=== PATIENT | male | born 1985 | race Caucasian/White ===

== ENCOUNTER 2021-05-20 11:25 | Emergency (ER) | payer OTHER, SELFPAY ==
[2021-05-20 11:37] VITALS: BP 140/76; PULSE 64; RESP 18; TEMP 36.6; O2SAT 100
--- NOTE | 2021-05-20 11:53 | ED.EAR ---
HPI - Ear Problem General Chief complaint: Ear Stated complaint: ear pain Time Seen by Provider: 05/20/21 11:53 Source: patient Mode of arrival: ambulatory Limitations: no limitations History of Present Illness HPI Narrative: Maurisio Sanchez is a 35-year-old male with no prior medical history who comes to [facility] with complaints of right ear pain. He states has been hurting about 4 to 5 days and is getting worse especially when he tries eat anything and scratchy requires a lot of chewing. He was on a river trip last weekend and got in the water and was also playing around in the water quite a bit. He has tried Tylenol and ibuprofen but the ear pain is getting worse Related Data Home Medications Medication Instructions Recorded Confirmed ibuprofen 05/20/21 Allergies Allergy/AdvReac Type Severity Reaction Status Date / Time Penicillins Allergy Hives Verified 05/20/21 11:45 Review of Systems Review of Systems: CONSTITUTIONAL: Denies fever, chills, sweats. EYES: Denies visual changes, redness, discharge. ENT: Denies rhinorrhea, congestion, sore throat, right otalgia. Right TMJ pain CARDIOVASCULAR: Denies chest pain, palpitations, edema. RESPIRATORY: Denies dyspnea, wheezing, cough GASTROINTESTINAL: Denies abdominal pain, nausea, vomiting, diarrhea. GENITOURINARY: Denies dysuria, hematuria, abnormal discharge SKIN: Denies rash or itching. NEUROLOGIC: Denies numbness, or focal weakness. PSYCHIATRIC: Denies anxiety or depression. [facility] Past Medical History Medical History No acute medical problems Family History Family History Other Diabetes mellitus Heart disease Hypertension Social History Social History (Updated 05/20/21 @ 11:56 by Noemi Lizarraga CNP) Smoking status: Never smoker Alcohol intake: current Comments At time of signature, I agree with nursing past medical, surgical, social and family history. There is no relevant family history pertinent to the presenting complaint. Exam Narrative: GENERAL: This is a well-nourished, well-developed patient, in mild distress. HEAD: normocephalic, atraumatic. EYES: Sclera clear/white. Vision is grossly intact. EARS: External ears normal, auditory canal mild erythema on left and right canal edema with erythema with drainage, TMs normal without perforation. Hearing grossly intact. NOSE: External nose normal without nasal discharge, nares without redness, no rhinorrhea. THROAT: Mucous membranes moist, posterior pharynx erythema with pus pocket central posterior pharynx NECK: Neck supple, non-tender CARDIOVASCULAR: Regular rate and rhythm without murmurs, gallops, or rubs. RESPIRATORY: Clear to auscultation. Breath sounds equal bilaterally. No wheezes, rales, or rhonchi. GASTROINTESTINAL: Abdomen soft, non-tender, SKIN: warm, intact with no suspicious lesions or rash, good texture and turgor. NEURO: awake, alert, and oriented to person, place and time. There were no obvious focal neurologic abnormalities. Steady gait EXTREMITIES: Normal range of motion. BACK: Nontender without deformity Course Course Emergency Course: Patient is here with complaints of right ear pain that started after a full trip last weekend and is gotten worse in the last 4 to 5 days Eardrops and oral antibiotics given due to both ear infection and apparent pharyngitis with pus Vital Signs Vital signs: Vital Signs Temperature 97.9 F 05/20/21 11:37 Pulse Rate 64 05/20/21 11:37 Respiratory Rate 18 05/20/21 11:37 Blood Pressure 140/76 05/20/21 11:37 Pulse Oximetry 100 05/20/21 11:37 Temperature 97.9 F 05/20/21 11:37 Pulse Rate 64 05/20/21 11:37 Respiratory Rate 18 05/20/21 11:37 Blood Pressure 140/76 05/20/21 11:37 Pulse Oximetry 100 05/20/21 11:37 Medical Decision Making Differential Diagnosis Differential Brittney
== END 2021-05-20 12:14 | disposition home or self-care (01) ==
PROVIDERS: Emergency Provider Nurse Practitioner
DX: H60.91 Unspecified otitis externa, right ear (principal); J03.90 Acute tonsillitis, unspecified
CPT/HCPCS: 99203; G0463

== ENCOUNTER 2021-07-03 14:08 | Emergency (ER) | payer OTHER, SELFPAY ==
[2021-07-03 14:16] VITALS: BP 139/79; PULSE 80; RESP 18; TEMP 36.6; O2SAT 100
--- NOTE | 2021-07-03 14:21 | ED.GENADULT ---
HPI - General Adult General Chief complaint: Wound/Laceration Stated complaint: Cut Lt leg Source: patient Mode of arrival: ambulatory Limitations: no limitations History of Present Illness HPI narrative: 35 y/o male. PMHx none reported. Presents [facility] today with acute complaints of LLE laceration. Pt reports to have been working on a deck with boards immediately [employer]. He did not see a nail in one of the boards as he was lifting it, causing the nail to catch and lacerate his lower leg. Bleeding is currently controlled. Nail remains intact, without additional concern for residual FB per report. Last TDAP UTD, 2 years ago per client. He is non-diabetic. No sensory changes or deficits reported. Related Data Allergies Allergy/AdvReac Type Severity Reaction Status Date / Time Penicillins Allergy Hives Verified 07/03/21 14:35 Review of Systems Review of Systems: CONSTITUTIONAL: Denies fever, chills, sweats. EYES: Denies visual changes, redness, discharge. ENT: Denies rhinorrhea, congestion, sore throat, otalgia. CARDIOVASCULAR: Denies chest pain, palpitations, edema. RESPIRATORY: Denies dyspnea, wheezing, cough GASTROINTESTINAL: Denies abdominal pain, nausea, vomiting, diarrhea. GENITOURINARY: Denies dysuria, hematuria, abnormal discharge SKIN: Denies rash or itching. LLE Laceration. MUSCULOSKELETAL: Denies acute back pain, joint pain, or myalgia. NEUROLOGIC: Denies numbness, or focal weakness. PSYCHIATRIC: Denies anxiety or depression. All systems reviewed & are unremarkable except as noted in HPI and below PMFSH Past Medical History Medical History No acute medical problems Family History Family History Other Diabetes mellitus Heart disease Hypertension Social History Social History Smoking status: Never smoker Alcohol intake: current Exam Narrative: GENERAL: This is a well-nourished, well-developed adult, in no apparent distress. HEAD: normocephalic, atraumatic. EYES: PERRL. Sclera clear/white. EARS: External ears normal, auditory canals clear and without drainage, TMs normal. NOSE: External nose normal. Positive Rhinorrhea, no obstruction, nares patent. THROAT: Mucous membranes moist, posterior pharynx clear. No exudates. NECK: Neck supple, non-tender without lymphadenopathy, masses or thyromegaly. CARDIOVASCULAR: Regular rate and rhythm without murmurs, gallops, or rubs. Pulses strong, intact LLE. RESPIRATORY: Clear to auscultation. Breath sounds equal bilaterally. No wheezes, rales, or rhonchi. GASTROINTESTINAL: Abdomen soft, non-tender, nondistended. Bowel sounds are active. No guarding. SKIN: warm, with 4 cm linear laceration located to lower left inner leg, above ankle. Bleeding controlled. No obvious FB. No signs of deep tissue or tendon disruption. NEURO: Alert, active, and age appropriate. Good sensation and discrimination LLE. No focal neurologic deficits. EXTREMITIES: Full flexion and extension of LLE, no bony tenderness or disruption. Negative. Course Vital Signs Vital signs: Vital Signs Temperature 36.6 C 07/03/21 14:16 Pulse Rate 80 07/03/21 14:16 Respiratory Rate 18 07/03/21 14:16 Blood Pressure 139/79 07/03/21 14:16 Pulse Oximetry 100 07/03/21 14:16 Temperature 36.6 C 07/03/21 14:16 Pulse Rate 80 07/03/21 14:16 Respiratory Rate 18 07/03/21 14:16 Blood Pressure 139/79 07/03/21 14:16 Pulse Oximetry 100 07/03/21 14:16 Procedures Laceration Laceration 1: Date: 07/03/21 Time: 14:28 Site: lower extremity Side (If applicable): left Size (cm): 4 Description: linear Depth: simple, single layer Local Anesthetic: lidocaine 1% Amount of anesthesia used (mL): 1 Pre-repair: wound explored, i
== END 2021-07-03 15:07 | disposition home or self-care (01) ==
PROVIDERS: Emergency Provider Nurse Practitioner Adult Health
DX: S81.812A Laceration without foreign body, left lower leg, initial encounter (principal); W45.0XXA Nail entering through skin, initial encounter
CPT/HCPCS: 12002; 99212; G0463

== ENCOUNTER 2022-03-21 10:16 | Emergency (ER) | payer OTHER, SELFPAY ==
--- NOTE | 2022-03-21 10:25 | ED.NAVMDI ---
HPI - Nausea/Vomiting/Diarrhea General Stated complaint: vomiting,headache Time Seen by Provider: 03/21/22 10:25 Source: patient Mode of arrival: ambulatory Limitations: no limitations History of Present Illness HPI Narrative: Mr. Sanchez is a 36-year-old male patient presenting to the clinic today with complaints of headache and vomiting since Saturday. He reports he has a history of migraine headaches although he has not had any headaches x1 year. He denies ever having a CAT scan done before. He reports that this is the worst headache he has ever had and he rates his pain a 10 out of 10. Reports that his pain is sharp on the left side of his head just behind his eye and radiating to the parietal lobe. He is also has nausea and vomiting. He reports that he feels as though he may be dehydrated. Is also reporting some dizziness. His blood pressure is 147/88 in the clinic today. His is here with him today. MD elicited complaint: nausea, vomiting and other (Headache) Related Data Home Medications Medication Instructions Recorded Confirmed escitalopram oxalate 10 mg tablet 10 mg PO DAILY 03/21/22 03/21/22 (Lexapro) Allergies Allergy/AdvReac Type Severity Reaction Status Date / Time Penicillins Allergy Hives Verified 07/03/21 14:35 Review of Systems Review of Systems: Pertinent positives per HPI. Patient denies any fever, chills, rash, visual changes, cough, runny nose, sore throat, shortness of breath, chest pain, palpitations, diarrhea, constipation, abdominal pain, or any urinary issues. PMFSH Past Medical History Medical History No acute medical problems Family History Family History Other Diabetes mellitus Heart disease Hypertension Social History Social History Smoking status: Never smoker Alcohol intake: current Comments At the time of my signature, I reviewed and agree with the nursing past medical, surgical, social, and family history. There is no relevant family history pertinent to the patient complaint. Exam Narrative: General: Well-developed, well nourished, in no apparent distress Head: Normocephalic, atraumatic Eyes: Pupils equally round and reactive to light bilaterally, EOM intact, sclera and conjunctive clear, no discharge, lids normal Ears: TMs intact and clear, ear canals clear, no drainage, grossly hearing normal. Nose: Nares patent, no discharge, no inflammation, no sinus tenderness. Mouth: Oropharynx without lesions or masses, good dentition, MMM. Neck: Supple, trachea midline, no enlargement of anterior or posterior cervical nodes, no thyroid masses or goiter palpable. Cardio: Regular rate and rhythm, s1 and s2 normal, no murmur appreciated. Resp: Clear to auscultation bilaterally anteriorly and posteriorly, no rhonchi, rales, wheezing or rubs Course Course Emergency Course: Portions of this record may have been created with voice recognition software. Level of Care: Express Care Visit Vital Signs Vital signs: Vital signs reviewed Transfer Transfered to: Other ([facility] in [place], [place]) Transportation: Other (Private car) Transfer rationale: Migraine headache/worst headache ever/needs CAT scan of brain Accepting physician: Dr. Jimenez Transfer comments: Patient's to drive him to hospital. MDM - Nausea/Vomiting/Diarrhea MDM Narrative Medical decision making narrative: At the time of visit patient is resting comfortably on the exam table. He reports that his migraine headache is a 10 out of 10 pain. He reports that is just behind the left eye and radiates into the parietal lobe. He has never had a CAT scan completed before. He also reports that he may be dehydrated. I recommend that he is transferred to the ER for a CT scan as his symptoms have im
[2022-03-21 10:31] VITALS: BP 147/88; PULSE 86; RESP 18; TEMP 37.1; O2SAT 100
== END 2022-03-21 10:48 | disposition short-term general hospital (02) ==
PROVIDERS: Emergency Provider Nurse Practitioner Family
DX: G43.909 Migraine, unspecified, not intractable, without status migrainosus (principal); F41.9 Anxiety disorder, unspecified
CPT/HCPCS: 87426; 99213; C9803; G0463

== ENCOUNTER 2022-10-07 09:54 | Outpatient (CLI) | payer OTHER, SELFPAY ==
--- NOTE | ~2022-10-07 | MR_ITS ---
MRI of the right knee Clinical history: Pain Technique: Coronal proton density and proton density-weighted images, sagittal proton-density and T2 fat-sat images, and axial proton-density fat-saturated images were acquired. Findings: Anterior and posterior cruciate ligaments are intact. There is probable mild increased sign al of the ACL which could reflect mild mucoid degenerative change. Medial collateral ligament and the lateral collateral ligament complex are intact. Popliteus tendon is intact. There is horizontal cleavage tear of the posterior horn and body of the medial meniscus. No lateral m eniscal tear evident. Articular cartilage is well preserved in all 3 joint compartments. Bone marrow signals are unremarkab le. Extensor mechanism is intact. No significant joint effusion or Putnam's cyst. Impression: Horizontal cleavage tear of the posterior horn and body of the medial meniscus. 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 Reviewed, dictated and finalized at location [] [facility] Impression: Horizontal cleavage tear of the posterior horn and body of the medial meniscus. 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
== END 2022-10-07 09:55 | disposition home or self-care (01) ==
PROVIDERS: PCP Family Medicine; Visit Provider Orthopaedic Surgery
DX: M25.561 Pain in right knee (principal); G89.29 Other chronic pain; S83.241A Other tear of medial meniscus, current injury, right knee, initial encounter
CPT/HCPCS: 73721